=== PATIENT | male | born 1975 | race Caucasian/White ===

== ENCOUNTER → 2018-02-16 16:55 | Emergency (ER) | payer OTHER ==
[~2018-02-16 16:55] MED LIST: Acetaminophen TAB* 325 MG PO ONE; NS 0.9% 1000 ML* 1,000 ML IV ONE; NS 0.9% 1000 ML* 2,000 ML IV ONE; Ondansetron ODT TAB* 4 MG PO ONE
[2018-02-16 18:06] LABS: ABS Basophils 0 10^3/ul (0-0.2); ABS Eosinophils 0 10^3/ul (0-0.6); ABS Lymphocytes 0.4 10^3/ul (1.0-4.8); ABS Monocytes 0.8 10^3/ul (0-0.8); ABS Nucleated RBC 0 10^3/ul; Eosinophil % 0 % (0-6); Hematocrit 47 % (42-52); Hemoglobin 15.9 g/dl (14.0-18.0); Lymphocyte % 4.8 % (25-47); Mean Corpuscular HGB Conc 34 g/dl (31-36); Mean Corpuscular Hemoglobin 29 pg (27-31); Mean Corpuscular Volume 86 fL (80-94); Mean Platelet Volume 8.2 um3 (7.4-10.4); Nucleated Red Blood Cells % 0.1; Platelet Count 182 10^3/ul (150-450); Red Blood Count 5.46 10^6/ul (4.00-5.40); Red Cell Distribution Width 14 % (10.5-15); White Blood Count 9.3 10^3/ul (3.5-10.8)
--- NOTE | 2018-02-16 18:17 | ED ---
HPI Febrile Illness - HPI Summary HPI Summary: 42 y/o male presents to the ED c/o constant febrile illness starting 2 nights ago. Sx not aggravated or alleviated by anything. Watery diarrhea (around 20 times) starting last night. This afternoon temperature dyan (102.8 highest). Associated sx: fatigue, vomiting starting today. Pt also c/o ABD cramping for for several days. Pt sleeps with CPAP machine. PMHx sleep apnea. Pt's child was vomiting several days ago. - History of Current Complaint Chief Complaint: EDFever Time Seen by Provider: 02/16/18 17:57 Hx Obtained From: Patient Onset/Duration: Started Days Ago, Still Present Timing: Constant Aggravating Factors: Nothing Alleviating Factors: Nothing Associated Signs and Symptoms: Diarrhea, Vomiting - Allergy/Home Medications Allergies/Adverse Reactions: Allergies Allergy/AdvReac Type Severity Reaction Status Date / Time No Known Allergies Allergy Verified 02/16/18 17:15 PMH/Surg Hx/FS Hx/Imm Hx Previously Healthy: No Cardiovascular History: Denies: Hx Congestive Heart Failure Neurological History: Denies: Hx CVA Infectious Disease History: No Infectious Disease History: Denies: Traveled Outside the [place] in Last 30 Days - Family History Known Family History: Negative: Cardiac Disease, Hypertension, Diabetes - Social History Occupation: Employed Full-time Lives: With Family Hx Substance Use: No Substance Use Type: Reports: None Review of Systems Positive: Fever, Fatigue. Negative: Chills Negative: Drainage Negative: Sore Throat Negative: Chest Pain Negative: Shortness Of Breath, Cough Positive: Abdominal Pain, Vomiting, Diarrhea Negative: dysuria, hematuria Negative: Myalgia, Edema Negative: Rash Neurological: Other - no dizziness All Other Systems Reviewed And Are Negative: Yes Physical Exam - Summary Physical Exam Summary: Constitutional: Well-developed, Well-nourished, Alert. (-) Distressed Skin: Warm, Clammy HENT: Normocephalic; Atraumatic Eyes: Conjunctiva normal Neck: Musculoskeletal ROM normal neck. (-) JVD, (-) Stridor, (-) Tracheal deviation Cardio: Rhythm regular, rate normal, Heart sounds normal; Intact distal pulses; The pedal pulses are 2+ and symmetric. Radial pulses are 2+ and symmetric. (-) Murmur Pulmonary/Chest wall: Effort normal. (-) Respiratory distress, (-) Wheezes, (-) Rales Abd: Soft, (-) epigastric tenderness, (-) Distension, (-) Guarding, (-) Rebound Musculoskeletal: (-) Edema Lymph: (-) Cervical adenopathy Neuro: Alert, Oriented x3 Psych: Mood and affect Normal Triage Information Reviewed: Yes Vital Signs On Initial Exam: Initial Vitals Temp Pulse Resp BP Pulse Ox 98.6 F 102 19 102/64 96 02/16/18 17:11 02/16/18 17:11 02/16/18 17:11 02/16/18 17:11 02/16/18 17:11 Vital Signs Reviewed: Yes Diagnostics - Vital Signs Vital Signs Temp Pulse Resp BP Pulse Ox 02/16/18 17:18 116 20 111/69 97 02/16/18 17:11 98.6 F 102 19 102/64 96 - Laboratory Lab Results: Lab Results 02/16/18 Range/Units 17:55 WBC 9.3 (3.5-10.8) 10^3/ul RBC 5.46 H (4.00-5.40) 10^6/ul Hgb 15.9 (14.0-18.0) g/dl Hct 47 (42-52) % MCV 86 (80-94) fL MCH 29 (27-31) pg MCHC 34 (31-36) g/dl RDW 14 (10.5-15) % Plt Count 182 (150-450) 10^3/ul MPV 8.2 (7.4-10.4) um3 Neut % (Auto) 86.1 H (38-83) % Lymph % (Auto) 4.8 L (25-47) % [place] % (Auto) 8.8 H (0-7) % Eos % (Auto) 0 (0-6) % Baso % (Auto) 0.3 (0-2) % Absolute Neuts (auto) 8.0 H (1.5-7.7) 10^3/ul Absolute Lymphs (auto) 0.4 L (1.0-4.8) 10^3/ul Absolute Monos (auto) 0.8 (0-0.8) 10^3/ul Absolute Eos (auto) 0 (0-0.6) 10^3/ul Absolute Basos (auto) 0 (0-0.2) 10^3/ul Absolute Nucleated RBC 0 10^3/ul Nucleated RBC % 0.1 Result Diagrams: 02/16/18 17:55 02/16/18 17:55 Lab Statement: Any lab studies that have been ordered have been reviewed, and results considered in the medical decision making process. Course/Dx - Course Assessment/Plan: Tylenol, Zofran, Fluids given in ED course. After several hours in the ED pt reports feeling much better. Pt will be d/c home, f/u PCP. - Diagnoses Provider Diagnoses: Gastroenteritis Discharge - Sign-Out/Discharge Documenting (check all that apply): Patient Departure - Discharge Plan Condition: Stable Disposition: HOME Prescriptions: Ondansetron ODT TAB* [Zofran 4 MG Odt TAB*] 4 mg PO Q8H PRN #9 tab.odt PRN Reason: Nausea/Vomiting Patient Education Materials: Gastroenteritis (ED) Forms: *Work Release Referrals: Annel Meneses MD [Primary Care Provider] - 3 Days (PLEASE F/U IN 2-3 DAYS) Additional Instructions: RETURN TO THE ED FOR WORSENING SYMPTOMS - Attestation Statements Document Initiated by Scribe: Yes Documenting Scribe: Rubén Antunez Provider For Whom Scribe is Documenting (Include Credential): Melchor Toledo MD Scribe Attestation: Rubén Claudio, scribed for Melchor Toledo MD on 02/16/18 at 2334.
[2018-02-16 18:26] LABS: EGFR Non-African American 77.5 (>60)
[2018-02-16 23:29] VITALS: BP 103/61
== END | disposition home or self-care (01) ==
LOC: ED 16:55
DX: K52.9 Noninfective gastroenteritis and colitis, unspecified (principal); R19.7 Diarrhea, unspecified; R11.10 Vomiting, unspecified; R50.9 Fever, unspecified; R53.83 Other fatigue
CPT/HCPCS: 36415; 80053; 83605; 83690; 85025; 86140; 87040; 99283; A9270-GY

== ENCOUNTER 2018-07-07 09:26 | Emergency (ER) | payer OTHER ==
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
[2018-07-07 11:46] VITALS: BP 144/69
== END 2018-07-07 11:44 | disposition home or self-care (01) ==
LOC: ED 09:26
DX: S52.501A Unspecified fracture of the lower end of right radius, initial encounter for closed fracture (principal); V47.6XXA Car passenger injured in collision with fixed or stationary object in traffic accident, initial encounter; Y92.9 Unspecified place or not applicable
CPT/HCPCS: 99282